=== PATIENT | female | born 1990 | race African-American/Black ===

== ENCOUNTER 2016-05-22 12:50 | Emergency (ER) | payer OTHER ==
[~2016-05-22] VITALS: Ht 162.6 cm; Wt 132.4 kg
[~2016-05-22 12:50] MED LIST: MIRENA1 EACH
--- NOTE | 2016-05-22 16:07 | ED CARDIAC/CP/PALPITATIONS ---
History of Present Illness General Chief Complaint: General Adult Stated Complaint: PT IS HAVING PAIN IN BACK AND CHEST FOR 2WKS Source: patient Exam Limitations: no limitations Vital Signs & Intake/Output Vital Signs & Intake/Output Vital Signs Date Time Temp Pulse Resp B/P Pulse O2 O2 Flow FiO2 Ox Delivery Rate 05/22 1649 Room Air 05/22 1647 97.3 92 18 126/61 99 Room Air 05/22 1259 97.1 100 18 145/78 96 Room Air Allergies Coded Allergies: Penicillins (UNKNOWN PER PT HAD A KID 05/28/15) sulfamethoxazole (From ) (PER PT UNKNOWN HAD A KID 05/28/15) trimethoprim (From ) (PER PT UNKNOWN HAD A KID 05/28/15) Reconcile Medications Levonorgestrel (Mirena) 20 MCG/24 HOUR (5 YEARS) IUD CONTROL (Reported) Triage Note: PT COMPLAINS OF MID BACK PAIN FOR THE PAST 2 WEEKS, PAIN COMES AND GOES AND THIS EPISODE STARTED EARLY THIS AM. O2 SAT 98 % ON RA, TOOK MOTRIN FOR PAIN WITH NO RELIEF. DENIES URI SYMPTOMS, OT ANY INJURY Triage Nurses Notes Reviewed? yes : No Patient currently breastfeeds: No HPI: 25-year-old otherwise healthy female with 2 weeks of left-sided anterior lateral chest pain that radiates left mid back region. It is worse when she moves and takes a deep breath. She does not feel short of breath or tachycardic, no palpitations. No unilateral leg swelling or edema. She is taking Motrin and ibuprofen for this and it helps relieve the symptoms but it returns. She has no history of same. Symptoms are mild. She has an IUD and her mother has history of lupus with DVT and PE. (KERRY ARTHUR) Past History Travel History Traveled to [place] past 21 day No Medical History Any Pertinent Medical History? none Neurological: NONE EENT: NONE Cardiovascular: NONE Respiratory: NONE Gastrointestinal: NONE Hepatic: NONE Renal: NONE Musculoskeletal: NONE Psychiatric: NONE Endocrine: NONE Blood Disorders: NONE Cancer(s): NONE CUSTOMER TRAINING SPECIALIST/Reproductive: NONE Surgical History Surgical History: N Psychosocial History What is your primary language Belarusian Tobacco Use: Never used ETOH Use: denies use Illicit Drug Use: denies illicit drug use Family History Hx Contributory? Yes (MOM W PE(SLE)) (KERRY ARTHUR) Review of Systems Review of Systems Constitutional: Reports: see HPI. EENTM: Reports: no symptoms. Respiratory: Reports: see HPI. Denies: cough, hemoptysis, orthopnea, short of breath, sputum production, stridor, wheezing. Cardiovascular: Reports: see HPI. GI: Reports: no symptoms. Genitourinary: Reports: no symptoms. Musculoskeletal: Reports: no symptoms. Skin: Reports: no symptoms. Neurological/Psychological: Reports: no symptoms. Hematologic/Endocrine: Reports: no symptoms. Immunologic/Allergic: Reports: no symptoms. All Other Systems: Reviewed and Negative (KERRY ARTHUR) Physical Exam Physical Exam Respiratory: normal breath sounds, chest non-tender, no respiratory distress Cardiovascular: tachycardia (100 BPM) Comments: Well-developed well-nourished no apparent distress. HEENT: Atraumatic, extraocular motion intact Neck: Supple, no lymphadenopathy Back: Nontender, no CVA tenderness Respiratory: No respiratory distress chest is nontender Abdomen: Obese, nontender Extremities: No edema, full range of motion Neuro: Alert and oriented x3 Psych: Mood affect normal, normal memory normal judgment. Skin: Warm and dry, no rash on exposed skin Core Measures ACS in differential dx? Yes Severe Sepsis Present: No Septic Shock Present: No (KERRY ARTHUR) Progress Differential Diagnosis: AMI, aortic dissection, atrial fibrillation, cholecystitis, CHF/pulm edema, costochondritis, hyperkalemia, hypovolemia, hyperthyroid, hyperventilation, intracranial hemorrhage, musculoskeletal pain, myocarditis, pancreatitis, pericarditis, pneumonia, pneumothorax, PSVT, pulmonary embolism, PUD/GERD, PVCs/PACs, respiratory failure, rib fracture, sepsis, unstable angina, V-fib/V-Tach, WPW syndrome Initial ED EKG: NSR, rate (85), no ST T wave changes Comments: Patient's chest x-ray and labs and EKG are within normal limits her heart rate is 85. She was given Motrin with some relief. D-dimer is 236, it is underneath the 250 benchmark for our hospital guidelines for PE. I recommend that she follows up with primary care doctor returns or with worsening symptoms. I do not feel as though she needs a CTA at this time however she should return with worsening symptoms. Continue Motrin as needed (KERRY ARTHUR) Plan of Care: Orders Procedure Date/time Status TROPONIN LEVEL 05/22 1601 Complete D-DIMER 05/22 1601 Complete COMPREHENSIVE METABOLIC PANEL 05/22 1601 Complete CBC WITHOUT DIFFERENTIAL 05/22 1601 Complete B-TYPE NATRIURETIC PEP (BNP) 05/22 1601 Complete EKG 05/22 1601 Active URINE 05/22 1524 Complete Laboratory Tests 05/22/16 1629: Anion Gap 13, Estimated GFR > 60, BUN/Creatinine Ratio 14.4, Glucose 91, Calcium 9.8, Total Bilirubin 0.7, AST 27, ALT 52, Alkaline Phosphatase 65, Troponin I < 0.01, Ije-H-Hhrzutjgybf Pept 41.3, Total Protein 7.9, Albumin 4.3, Globulin 3.6, Albumin/Globulin Ratio 1.2, D-Dimer 236 H, CBC w Diff NO MAN DIFF REQ, RBC 4.75 , MCV 83.3, MCH 27.0, RDW 15.9 H, MPV 8.3, Gran % 63.4, Lymphocytes % 29.5, Monocytes % 5.8, Eosinophils % 0.4, Basophils % 0.9, Absolute Granulocytes 6.7 H, Absolute Lymphocytes 3.1, Absolute Monocytes 0.6, Absolute Eosinophils 0, Absolute Basophils 0.1, PUBS MCHC 32.4 L 05/22/16 1539: Urine Test NEGATIVE Departure Departure Disposition: HOME OR SELF CARE Condition: Stable Clinical Impression Primary Impression: Pleurisy Referrals: PATIENT HAS NO PRIMARY CARE DR (PCP/Family) Additional Instructions: Continue Motrin as needed for pain. Return to the ER with worsening chest pain, shortness of breath, cough or coughing up blood, fever or flulike illness. Follow-up with a primary care doctor if symptoms continue Departure Forms: Customer Survey General Discharge Information (KERRY ARTHUR) PA/CIVIL PREPAREDNESS OFFICER Co-Sign Statement Statement: ED Attending supervision documentation- [] I saw and evaluated the patient. I have also reviewed all the pertinent lab results and diagnostic results. I agree with the findings and the plan of care as documented in the PA's/CIVIL PREPAREDNESS OFFICER's documentation. [x] I have reviewed the ED Record and agree with the PA's/CIVIL PREPAREDNESS OFFICER's documentation. [] Additions or exceptions (if any) to the PAs/CIVIL PREPAREDNESS OFFICER's note and plan are summarized below: [] (REJI PEREZ,NEVIN D) Critical Care Note Critical Care Note Critical Care Time: non-applicable (KISHOR SCHOFIELD,KERRY)
[2016-05-22 16:35] LABS: ABSOLUTE BASOPHIL COUNT 0.1 /CUMM (0.0-0.2); ABSOLUTE EOSINOPHIL COUNT 0 /CUMM (0.0-0.7); ABSOLUTE GRANULOCYTE CT 6.7 /CUMM (1.4-6.5); ABSOLUTE LYMPH COUNT 3.1 /CUMM (1.2-3.4); ABSOLUTE MONOCYTE COUNT 0.6 /CUMM (0.10-0.60); BASOPHIL % 0.9 % (0.0-2.0); EOSINOPHIL % 0.4 % (0-5); GRANULOCYTE % 63.4 % (42.2-75.2); HEMATOCRIT 39.6 % (37-47); MEAN CORPUSCULAR HGB CONC 32.4 G/DL (33.0-37.0); MEAN CORPUSCULAR VOLUME 83.3 FL (81.0-99.0); MEAN PLATELET VOLUME 8.3 FL (7.4-10.4); PLATELET COUNT 306 /CUMM (130-400); RBC DISTRIBUTION WIDTH 15.9 % (11.5-14.5); RED BLOOD CELL CT 4.75 /CUMM (4.20-5.40); WHITE BLOOD CELL COUNT 10.6 /CUMM (4.8-10.8)
[2016-05-22 16:47] VITALS: BP 126/61
--- NOTE | 2016-05-22 17:00 | RADIOLOGY REPORT ---
EXAMINATION: XR CHEST CLINICAL INFORMATION: Chest pain. COMPARISON: None TECHNIQUE: 2 views of the chest were obtained. FINDINGS: No significant abnormality is noted involving the heart, lungs, mediastinum, bony thorax or soft tissues. IMPRESSION: Unremarkable examination.
== END 2016-05-22 17:49 ==
LOC: ERH 12:50
PROVIDERS: Physician Assistant Surgical
DX: R09.1 Pleurisy (principal); R07.89 Other chest pain
CPT/HCPCS: 81025; 93005; 93010